=== PATIENT | female | born 1995 | race Caucasian/White ===

== ENCOUNTER 2017-02-10 21:10 | Emergency (ER) | payer MEDICAID ==
[~2017-02-10] VITALS: Ht 165.1 cm; Wt 77.1 kg
[2017-02-10 22:04] VITALS: BP_SYST 132
--- NOTE | 2017-02-10 22:04 | NUR ---
Patient triaged and placed in waiting room. VSS and patient appears in no acute distress at this time. Accompanied by SELF, awaiting available bed, and MD notified of need for MSE.
--- NOTE | 2017-02-10 22:51 | NUR ---
Called pt to be placed in bed and no answer
--- NOTE | 2017-02-10 23:12 | NUR ---
Called pt to be placed in bed and no answer
--- NOTE | 2017-02-10 23:29 | NUR ---
Patient left without being seen. Called to place in bed and no answer.
== END 2017-02-10 23:29 | disposition left against medical advice (07) ==
LOC: SED 21:10
DX: M79.644 Pain in right finger(s) (principal); Z53.21 Procedure and treatment not carried out due to patient leaving prior to being seen by health care provider